=== PATIENT | female | born 1940 | race Caucasian/White ===

== ENCOUNTER 2021-01-23 12:23 | Inpatient (IN) ==
[~2021-01-23 12:23] MED LIST: Buffered Lidocaine 1% SYRIN 1 ml INTRADERM ONE; Lactated Ringers 1000 ml BAG 1,000 ML IV SCH
[2021-01-23] MEDS ORDERED: ceFAZolin 2 GM in NS PREMIX 2 GM/100 ML BAG IVPB ONE (13:36)
[2021-01-23] MEDS ORDERED: Lidocaine 1% w EPI 1:200,000 SDV 30 ML VIAL ONE (14:18)
[2021-01-23 14:19] LABS: Rapid COVID-19 Molecular Undetected (Undetected)
[2021-01-23] MEDS ORDERED: fentaNYL 100 mcg/2 ml 50 MCG/ML VIAL ONE (14:26)
[2021-01-23] MEDS ORDERED: ROPIVACAINE 5 MG/ML 30 ML BTL (0.5%) ONE (14:28)
[2021-01-23] MEDS ORDERED: Etomidate 20 mg/10 ml 2 MG/ML 10 ml VIAL ONE (14:31)
[2021-01-23] MEDS ORDERED: Lidocaine 2% PF 5 ML VIAL ONE (14:31)
[2021-01-23] MEDS ORDERED: Ketamine HCL 50 mg/ml 10 ml VIAL (500 MG) ONE (14:32)
[2021-01-23] MEDS ORDERED: EPHEDrine (Pressors) 50 MG/ML VIAL ONE (15:19)
[2021-01-23] MEDS ORDERED: Dexamethasone IV 4 MG/ML VIAL 1 ml VIAL ONE (15:31)
[2021-01-23] MEDS ORDERED: Ondansetron 4 mg VIAL 2 MG/ML 2 ml VIAL ONE ×2 (15:31→18:06)
[2021-01-23] MEDS ORDERED: Ondansetron 4 mg VIAL 2 MG/ML 2 ml VIAL IV PRN (17:46)
[2021-01-23] MEDS ORDERED: Acetaminophen IV 1 GM/100ML 100 ML IV ONE ×2 (17:46→18:06)
[2021-01-23] MEDS ORDERED: HYDROmorphone 1 MG/1 ML SYRINGE IV PRN ×2 (17:46→21:49)
[2021-01-23] MEDS ORDERED: fentaNYL 100 mcg/2 ml 50 MCG/ML VIAL IV PRN ×2 (17:46→21:49)
[2021-01-23] MEDS ORDERED: Naloxone 0.4 mg VIAL 0.4 mg/ml 1 ml VIAL IV PRN ×2 (17:46→21:49)
[2021-01-23] MEDS ORDERED: DiMENhydriNATE IV 50 mg/ml 1 ml VIAL IV PUSH PRN ×2 (17:46→21:49)
[2021-01-24] MEDS: OMEGA-3 FATTY ACID 1000 mg(NF) PO SCH ×3 (00:31→20:31)
[2021-01-24] MEDS: Carbidopa/Levodop 25/100 MG TAB PO SCH ×5 (00:33→20:31)
[2021-01-24] MEDS: Aspirin EC 81 mg TAB.EC (enteric coated) PO SCH (09:14)
[2021-01-24] MEDS: Cholecalciferol (VIT D3) 1,000 unit TAB PO SCH (09:14)
[2021-01-24] MEDS: Vitamin THERAPEUTIC TAB PO SCH (09:15)
[2021-01-24] MEDS: Carbidopa/Levodop CR 50/200 TAB.CR PO SCH (09:15)
[2021-01-24] MEDS ORDERED: Calcium Carb (TUMS) 500 mg CHEW TAB PO ONE (10:00)
[2021-01-24] MEDS: CMC:Solifenacin 5 mg TAB (NF) PO SCH (12:34)
[2021-01-25 06:25] LABS: Hematocrit 37 % (35-47); Hemoglobin 12.4 g/dL (12.0-16.0); Mean Platelet Volume 8.3 fL (7.4-10.4); Platelet Count 203 10^3/uL (150-450)
[2021-01-25 06:45] LABS: Calcium 9.7 mg/dL (8.6-10.3); Potassium 3.9 mmol/L (3.5-5.0)
[2021-01-25] MEDS: Vitamin THERAPEUTIC TAB PO SCH (08:04)
[2021-01-25] MEDS: Aspirin EC 81 mg TAB.EC (enteric coated) PO SCH (08:05)
[2021-01-25] MEDS: Cholecalciferol (VIT D3) 1,000 unit TAB PO SCH (08:05)
[2021-01-25] MEDS: Carbidopa/Levodop 25/100 MG TAB PO SCH ×4 (08:05→20:25)
[2021-01-25] MEDS: Carbidopa/Levodop CR 50/200 TAB.CR PO SCH (08:06)
[2021-01-25] MEDS: OMEGA-3 FATTY ACID 1000 mg(NF) PO SCH ×2 (08:06→20:25)
[2021-01-25] MEDS: CMC:Solifenacin 5 mg TAB (NF) PO SCH (13:12)
[2021-01-26] MEDS: Aspirin EC 81 mg TAB.EC (enteric coated) PO SCH (07:50)
[2021-01-26] MEDS: Cholecalciferol (VIT D3) 1,000 unit TAB PO SCH (07:51)
[2021-01-26] MEDS: OMEGA-3 FATTY ACID 1000 mg(NF) PO SCH ×2 (07:51→22:33)
[2021-01-26] MEDS: Carbidopa/Levodop 25/100 MG TAB PO SCH ×4 (07:51→22:33)
[2021-01-26] MEDS: Vitamin THERAPEUTIC TAB PO SCH (07:51)
[2021-01-26] MEDS: Carbidopa/Levodop CR 50/200 TAB.CR PO SCH (08:15)
[2021-01-26] MEDS: CMC:Solifenacin 5 mg TAB (NF) PO SCH (14:38)
[2021-01-27] MEDS: Carbidopa/Levodop CR 50/200 TAB.CR PO SCH (10:02)
[2021-01-27] MEDS: Cholecalciferol (VIT D3) 1,000 unit TAB PO SCH (10:03)
[2021-01-27] MEDS: Aspirin EC 81 mg TAB.EC (enteric coated) PO SCH (10:03)
[2021-01-27] MEDS: OMEGA-3 FATTY ACID 1000 mg(NF) PO SCH ×2 (10:03→20:31)
[2021-01-27] MEDS: Vitamin THERAPEUTIC TAB PO SCH (10:04)
[2021-01-27] MEDS: Carbidopa/Levodop 25/100 MG TAB PO SCH ×4 (10:04→20:31)
[2021-01-27] MEDS: CMC:Solifenacin 5 mg TAB (NF) PO SCH (12:41)
[2021-01-28] MEDS: Aspirin EC 81 mg TAB.EC (enteric coated) PO SCH (08:48)
[2021-01-28] MEDS: Cholecalciferol (VIT D3) 1,000 unit TAB PO SCH (08:49)
[2021-01-28] MEDS: OMEGA-3 FATTY ACID 1000 mg(NF) PO SCH (08:49)
[2021-01-28] MEDS: Vitamin THERAPEUTIC TAB PO SCH (08:49)
[2021-01-28] MEDS: Carbidopa/Levodop 25/100 MG TAB PO SCH ×2 (08:49→12:38)
[2021-01-28] MEDS: Carbidopa/Levodop CR 50/200 TAB.CR PO SCH (08:49)
[2021-01-28 11:45] VITALS: BP 105/49
[2021-01-28] MEDS: CMC:Solifenacin 5 mg TAB (NF) PO SCH (12:38)
== END 2021-01-28 15:50 | disposition home health service (06) | DRG 512 ==
LOC: SSU 12:23 → OR 12:23 → SSU 01-24 11:58
PROVIDERS: ADMIT Orthopaedic Surgery Sports Medicine; ATTEND Orthopaedic Surgery Sports Medicine